=== PATIENT | male | born 1995 | race Caucasian/White ===

== ENCOUNTER 2016-08-17 18:10 | Emergency (ER) | payer MEDICAID, OTHER ==
[~2016-08-17] VITALS: Ht 182.9 cm; Wt 63.6 kg
[~2016-08-17 18:10] MED LIST: DICL75TA5 PO; NO ROUTINE MEDS
[2016-08-17 18:18] VITALS: Ht 182.9 cm; Wt 63.6 kg
[2016-08-17] MEDS ORDERED: HYDR-347 PO (19:54)
--- NOTE | 2016-08-17 19:55 | ERPDOC ---
Departure Disposition Decision Date: Aug 17, 2016 Disposition Decision Time: 19:52 Disposition: 01 DISCHARGED HOME, SELF-CARE Impression Impression Impression: Primary Impression: Clavicle fracture Encounter type: initial encounter Clavicle location: lateral end Fracture type: closed Fracture alignment: displaced Laterality: left Qualified Codes: S42.032A - Displaced fracture of lateral end of left clavicle, initial encounter for closed fracture Severity: Moderate Condition: Improved Seen By: Physician only Referrals: MONAE MILLER II, MD (Family) 1 Day [facility] 1 Day Patient Instructions: Clavicle Fracture (ED) Problems/Meds/Labs Reviewed?: Yes Medications reviewed and manag: Yes Follow up care ordered?: Yes Mental Status: Alert, Oriented Scripts Hydrocodone/Acetaminophen ([place] 7.5-325 Tablet) 7.5-325 Tablet 1 TAB PO Q4HR Y for PAIN for 3 Days, #18 TAB 0 Refills Prov: ANTHONY MCCONNELL DO 08/17/16 HPI - General Medical General Chief Complaint: Shoulder Injury Stated Complaint: POSS BROKEN COLLAR BONE Time Seen by Provider: 18:25 Source: patient Exam Limitations: no limitations HPI - General Medical Initial Comments 21-year-old male presents to the emergency department with a chief complaint of an injury to his left shoulder. Patient believes he may have fractured his clavicle. Patient noted onset of symptoms one hour prior to arrival to the emergency department. Pain is moderate. Pain is dull. There is no radiation of pain. Pain has been persistent in nature since onset. Patient was climbing into the back of a pickup truck when he slipped and fell forward into the bed landing on his left shoulder. He denies striking his head, loss of consciousness, or neck pain. No other complaints or associated symptoms. No other injuries per patient. Occurred At: home Onset: Constant Allergies: Coded Allergies: No Known Drug Allergies (Verified Allergy, Unknown, 08/17/16) Past History Pediatric PMH History: Full-Term Hospitalizations: None Past Medical History Pt denies signifigant PMH Psychological: depression, suicide attempt Surgical History General: appendix Family History Family History: Negative Vaccines Hx Influenza Vaccination: No Hx Pneumococcal Vaccination: No Hx Tetanus Diptheria: Yes (7 YRS AGO) Hx Tetanus, Diptheria, Pertuss: Yes Social History Smoking Status: Never smoker Substance Use Type: does not use Alcohol Intake: none Review of Systems Constitutional Constitutional: DENIES: chills, fever Eyes General: DENIES: erythema, exudate Lids/Accessories: DENIES: erythema, swelling Vision: DENIES: acuity, blurring ENMT Ears: DENIES: drainage, erythema Hearing: DENIES: hearing loss Balance: DENIES: ataxia, falling to one side Sinuses: DENIES: congestion, pain Nose: DENIES: nosebleeds, pain Mouth/Throat: DENIES: painful swallowing, sore throat Teeth: DENIES: pain Jaw: DENIES: pain Cardiovascular Cardiac: DENIES: chest pain, dyspnea on exertion Rhythm/Rate: DENIES: irregular beat, palpitations Vascular: DENIES: pedal edema, unilateral swelling Pulmonary Respiratory: DENIES: cough, dyspnea, pleuritic chest pain, sputum GI Upper Abdomen: DENIES: nausea, pain, vomiting Lower Abdomen: DENIES: diarrhea, pain General: DENIES: dysuria, frequency Musculoskeletal General: joint pain, pain Integumentary Skin: DENIES: itching, rash Neurological General: DENIES: headache, numbness, weakness Psychiatric Psychiatric: DENIES: emotional instability, suicidal ideation/attempt Endocrine Endocrine: DENIES: polydipsia, polyphagia Hematologic/Lymphatic Hematologic/Lymphatic: DENIES: frequent nosebleeds, lymphadenopathy Allergic/Immunological Allergic/Immunoligical: DENIES: allergic reactions, hives Physical Exam General General Nourishment: well nourished, well developed, appears stated age, no acute distress, adult General Body Habitus: well groomed Vitals and Pain First Documented Vital Signs Date Time Temp Pulse Resp B/P Pulse Ox O2 Delivery O2 Flow Rate FiO2 08/17/16 18:18 97.9 80 16 123/76 98 Room Air Weight: Kilograms: 63.600 Height (feet): 6 Height (inches): 0 Triage Pain Scale: RN VS reviewed by Provider: Yes Normal Exams: Head: Normocephalic w/o trauma Eyes: Pupils are PERRLA w/ EOMI, No scleral icterus, irritation, or foreign bodies noted ENMT: No facial trauma, nasal exudates, pharyngeal erythema, or exudates are noted Dental: No fractured, loose, or missing teeth noted Neck: Full range of motion, without adenopathy, JVD, bruits or thyromegaly Chest/Resp: Clear all ruiz, with good airflow, and symmetry bilaterally CV: Regular rate and rhythm, without murmur or gallop, Pulses 2+ all extremities, capillary refill, <2 seconds all ext., no pedal edema noted Abdomen: Bowel sounds positive, soft, non-tender, non-distended, no hepatosplenomegaly, masses or bruits noted Lymphatic: No lymphadenopathy, or lymphedema noted Musculoskeletal: No tenderness, or deformity noted, good range of motion, all extremities Integumentary: No rashes, hives, or bruising noted, hair and nails, without abnormality Neurologic: Patient is alert, and oriented, cranial nerves, motor/sensory/ cerebellar, exams w/o gross deficits, to observation Psychiatric: Patient exhibits, appropriate attention, emotion and affect Musculoskeletal (brief) Comments LUE - full range of motion. Skin is intact. No tenting of skin over the clavicle. Tender to palpation over the distal clavicle. Pulses are intact. Sensation intact. Capillary refill less than 2. No erythema. Slight soft tissue swelling noted. No focal bony tenderness. No other tenderness in the left upper extremity. All other extremities are unremarkable. Differential Diagnoses Considering: Other (sprain/strain/fracture/contusion) Progress Results/Orders Orders Procedure Category Date Status Time Ct Head W/O Contrast CT 08/17/16 Taken 18:39 Ct Cervical Spine W/O CT 08/17/16 Taken Contrast 18:39 Shoulder Left 2-3 RAD 08/17/16 Taken Views 18:39 Chest, Pa & Lateral RAD 08/17/16 Taken 18:39 Clavicle Left RAD 08/17/16 Taken 18:39 Sling DEEPA 08/17/16 In Process 19:50 Hydrocodone/Acetaminophen PHA 08/17/16 Complete ([place]ford 7.5/325 20:00 Medications Current ED Medications Acetaminophen/ Hydrocodone Bitart ([place] 7.5/325) 1 tab O ONCE PO Last administered on 08/17/16t 20:05; Start 08/17/16 at 20:00; Stop 08/17/16 at 20:01 ; Status DC Progress Progress Imaging is discussed in detail with the patient and family and questions are answered. Patient is given analgesic pain medication with improvement of symptoms in the emergency Department. Patient is discussed with orthopedics on- call and recommendations are followed. Patient is placed in a sling with good alignment by the RN. Patient is distal neurovascularly intact post-application of sling. Patient is discharged home in improved condition. Patient is to follow up with orthopedics tomorrow. Patient is to return to the emergency department if his condition worsens or changes in any manner. Patient is agreement with the current plan of management. Patient is to follow up as instructed. Prescription for [place]ford was provided. Xray Xray : Xray: Shoulder L Interpretation: Abnormal (minimally displaced distal clavicle fracture. Otherwise unremarkable. Chest x-ray: Negative. Left clavicle: Minimally displaced distal clavicle fracture.), Faxed Report ANTHONY MCCONNELL DO Aug 17, 2016 19:55
[2016-08-17 20:25] VITALS: BP 119/72; PULSE 71; RESP 16; TEMP 97.9; O2SAT 99
--- NOTE | 2016-08-18 08:43 | DI ---
INDICATION: ITS.REASON: pain PROCEDURE: CHEST 2-VIEWS UPRIGHT (PA \T\ LAT) Encounter: Initial COMPARISON: September 27, 2008 FINDINGS: The lungs are clear without evidence of focal abnormal airspace opacity. There is no pleural effusion or pneumothorax. The heart size, mediastinal contours and pulmonary vascularity are within normal limits. There is no significant skeletal abnormality. IMPRESSION: No acute cardiopulmonary disease. There is a preliminary report by [facility]. .
--- NOTE | 2016-08-18 08:43 | DI ---
Indication: ITS.REASON: Fall with left shoulder pain PROCEDURE: CLAVICLE LEFT: Encounter: Initial Comparison: None Findings: Minimally displaced fracture of the distal tip of the clavicle. No additional acute fracture or dislocation seen. Acromioclavicular joint width is normal. Impression: Closed posttraumatic distal clavicular fracture. There is a preliminary report by [facility] [employer]. .
--- NOTE | 2016-08-18 08:44 | DI ---
Indication: ITS.REASON: Fall with left shoulder pain PROCEDURE: SHOULDER LEFT 3 VIEWS: Encounter: Initial Comparison: None Findings: Minimally displaced fracture of the tip of the distal clavicle. No additional acute fracture or dislocation seen. Impression: Closed posttraumatic distal clavicular fracture. There is a preliminary report by [facility]. .
--- NOTE | 2016-08-18 08:45 | DI ---
Indication: ITS.REASON: Fall with neck pain PROCEDURE: CT CERVICAL SPINE W/O CONTRAST: Encounter: Initial Comparison: None Technique: Axial CT images through the cervical spine were performed without contrast. Coronal and sagittal reformatted images were also obtained. Automated Exposure Control and Iterative Reconstruction dose reducing techniques were utilized. FINDINGS: The alignment of the cervical spine is normal. There is no evidence of acute fracture or subluxation of the cervical spine. The facet joints are well aligned with preservation of the intervertebral disk and facet joints. The atlantoaxial articulation, dens, and upper cervical spine demonstrate no subluxation. There is no evidence of significant spinal stenosis, foraminal compromise, or significant disk herniation. The paraspinal soft tissues and spinal canal appear unremarkable. IMPRESSION: No acute traumatic abnormality of the cervical spine. There is a preliminary report by [facility]. .
--- NOTE | 2016-08-18 08:45 | DI ---
Indication: ITS.REASON: Fall with head pain PROCEDURE: CT HEAD W/O CONTRAST: Encounter: Initial Comparison: None Technique: Axial CT images through the head were performed without contrast. Iterative Reconstruction dose reducing technique was utilized. FINDINGS: The ventricles are of normal size, shape, and configuration for the patient's age. There is no evidence of acute intracranial hemorrhage, midline displacement, or mass effect. The CT attenuation of the brain parenchyma is normal within the cerebellum, brain stem, and cerebral hemispheres. The tympanic cavities and mastoid air cells are free of appreciable disease. There are no definite fractures of the skull base, calvarium, or visualized portion of the midface. IMPRESSION: No CT evidence of acute traumatic intracranial injury. There is a preliminary report by [employer]. .
== END 2016-08-17 20:25 | disposition home or self-care (01) ==
LOC: ED 18:10
DX: S42.032A Displaced fracture of lateral end of left clavicle, initial encounter for closed fracture (principal); W01.0XXA Fall on same level from slipping, tripping and stumbling without subsequent striking against object, initial encounter; Y93.89 Activity, other specified; Y92.008 Other place in unspecified non-institutional (private) residence as the place of occurrence of the external cause; Y99.8 Other external cause status

== ENCOUNTER 2017-02-08 10:44 | Observation (INO) ==
[2017-02-08] MEDS ORDERED: CHARCOAL Activated 25gm/120ml SUSP PO ONE (10:50)
--- NOTE | 2017-02-08 10:51 | Emergency Department Report ---
Overdose HPI - General Stated Complaint: overdoes Time Seen by Provider: 02/08/17 10:51 Source: patient Mode of arrival: ambulatory Limitations: no limitations - History of Present Illness HPI Narrative: Patient is a 21-year-old male brought to the emergency department by for intentional overdose. Patient at home with his girlfriend, took 20 0.5 mg Klonopin belonging to a 3rd green party that were "left there". Girlfriend called 's department, patient was transported cooperatively to the ER for evaluation. On arrival patient able to answer questions but very sleepy. complaint: intentional overdose Onset (ago): hour(s) (1) Timing confirmed by: other (significant other) Intent: suicide attempt (patient states he was trying to harm himself) How Overdose Was Discovered: family/friend present at time Context: Intentional Overdose: relationship problems Associated symptoms: depression - Related Data Home Medications Medication Instructions Recorded Confirmed No known Home medications [No home 12/08/16 02/08/17 meds] clonazePAM [Klonopin] 0.5 tab PO O 02/08/17 02/08/17 Allergies Allergy/AdvReac Type Severity Reaction Status Date / Time No Known Drug Allergies Allergy Unknown Verified 02/08/17 11:02 Review of Systems Constitutional: Denies: fever, chills Eyes: Denies: eye discharge, vision change ENT: Denies: throat pain, dental pain Cardiovascular: Denies: chest pain, palpitations Gastrointestinal: Denies: abdominal pain, nausea, vomiting Genitourinary: Denies: urgency, dysuria, frequency Integumentary: Denies: alopecia, change in hair Neurological: Denies: headache, weakness, numbness, paresthesias Psychiatric: Reports: depression, suicidal thoughts. Denies: anxiety Endocrine: Denies: fatigue, heat or cold intolerance Hematological/Lymphatic: Denies: easy bleeding, easy bruising Allergic/Immunologic: Denies: facial swelling, urticaria PFSH Patient Stated Medical History Substance Use Disorder denies Medical History Updates: Depression Surgical History: Appendectomy - Social History Smoking status: Current every day smoker Substance use type: does not use Alcohol intake frequency: does not drink Physical Exam - Limitations Limitations: no limitations - General General appearance: lethargic - Eye Eye exam: Present: PERRL, EOMI - ENT ENT exam: Present: normal oropharynx - Chest Chest inspection: Present: symmetric chest wall rise. Absent: tenderness - Respiratory Respiratory exam: Present: normal lung sounds bilaterally. Absent: respiratory distress, wheezes, stridor - Cardiovascular Cardiovascular exam: Present: regular rate, normal rhythm, normal heart sounds - Abdominal Exam Abdominal exam: Present: soft. Absent: distention, tenderness - Extremities Exam Extremities exam: Present: full ROM. Absent: tenderness - Skin Skin exam: Present: warm, dry - Neurological Exam Neurological exam: Present: alert, oriented X3, CN II-XII intact - Psychiatric Psychiatric exam: Present: normal affect, normal mood Course Vital Signs Temperature 97.7 F 02/08/17 10:45 Pulse Rate 86 02/08/17 10:45 Respiratory Rate 16 02/08/17 10:45 Blood Pressure 125/76 02/08/17 10:45 Pulse Oximetry 100 02/08/17 10:45 Temperature 97.7 F 02/08/17 10:45 Pulse Rate 88 02/08/17 11:41 Respiratory Rate 16 02/08/17 10:45 Blood Pressure 125/76 02/08/17 10:45 Pulse Oximetry 100 02/08/17 10:45 Overdose - MDM Narrative Medical decision making narrative: Patient stated several times that he was attempting to harm himself. Patient towards the end of his visit in the emergency department became combative and argumentative pulling at lines threatening to leave threatening to spit. Patient was placed in hard restraints 12:18. Patient continued to attempt to get out of his restraints pulled lines, patient was given 5 mg of Haldol IV 1 - Differential Diagnosis Likely: drug overdose (clonazepam, intentional) - Medical Records Attestation: I reviewed the patient's medical records. - Lab Data Attestation: I reviewed the patient's lab results. Result diagrams: 02/08/17 10:59 02/08/17 10:59 Lab Results 02/08/17 02/08/17 02/08/17 Range/Units 10:59 10:59 12:03 WBC 6.9 (4.5-11.0) T/MM3 RBC 5.20 (4.50-5.90) M/MM3 Hgb 16.0 (13.5-17.5) GM/DL Hct 46.0 (41-53) % MCV 88.5 (80-100) UM3 MCH 30.8 (26-34) UUG MCHC 34.8 (31-37) GM/DL RDW Std Deviation 40.0 (36.9-50.2) FL Plt Count 170 (130-400) T/MM3 MPV 9.5 (9.4-12.4) UM3 Immature Gran % (Auto) 0.1 (0.0-0.5) % Neut % (Auto) 67.8 H (33-66) % Lymph % (Auto) 24.6 (23-45) % [place] % (Auto) 6.1 (0-9.0) % Eos % (Auto) 1.0 (0-4) % Baso % (Auto) 0.4 (0-2) % Neut # (Auto) 4.7 (1.8-7.7) T/MM3 Lymph # (Auto) 1.7 (1-4.8) T/MM3 B[place] # (Auto) 0.4 (0-0.8) T/MM3 Eos # (Auto) 0.1 (0-0.5) T/MM3 Baso # (Auto) 0.0 (0-0.2) T/MM3 Abs Immat Gran (auto) 0.01 (0.00-0.03) T/MM3 Turbidity < 20 (0-20) Sodium 146 H (134-144) MEQ/L Potassium 4.2 (3.6-5) MEQ/L Chloride 105 (98-107) MEQ/L Carbon Dioxide 30 (22-30) MEQ/L Anion Gap 11 (5-15) MEQ/L BUN 9.0 (9-20) MG/DL Creatinine 1.0 (0.8-1.5) MG/DL GFR Calculation 95 BUN/Creatinine Ratio 9 (6-26) RATIO Glucose 71 L (75-110) MG/DL Calculated Osmolality 278 (261-280) MOSM/KG Calcium 10.1 (8.4-10.2) MG/DL Total Bilirubin 1.50 H (0.20-1.30) MG/DL Icterus Index < 2 (0-7) AST 26 (17-59) U/L ALT 38 (21-72) U/L Alkaline Phosphatase 65 (38-126) U/L Total Protein 8.0 (6.3-8.2) G/DL Albumin 4.9 (3.5-5.0) G/DL Globulin 3.1 (2.4-3.6) G/DL Albumin/Globulin Ratio 1.6 (1.1-2.2) RATIO TSH 0.75 (0.47-4.68) MIU/L Specimen Hemolysis < 15 (0-25) Ur Collection Type Urine, clean catch Urine Color Yellow (YELLOW) Urine Clarity Clear Urine pH 6.0 (5.0-8.0) Ur Specific [place] 1.020 (1.015-1.025) Urine Protein Negative (NEGATIVE) Urine Glucose (UA) Negative (NEGATIVE) Urine Ketones Negative (NEGATIVE) Urine Occult Blood Negative (NEGATIVE) Urine Nitrate Negative (NEGATIVE) Urine Bilirubin Negative (NEGATIVE) Urine Urobilinogen 0.2 (NORMAL) EU/DL Ur Leukocyte Esterase Negative (NEGATIVE) Urinalysis Comment Microscopic not ind. Salicylates < 1.0 L (2-20) MG/DL Urine Opiates Screen ng/mL Ur Oxycodone Screen ng/mL Urine Methadone Screen ng/mL Ur Propoxyphene Screen ng/mL Acetaminophen < 10 L (10-30) UG/ML Ur Barbiturates Screen ng/mL U Tricyclic Antidepress ng/mL Ur Phencyclidine Scrn ng/mL Ur Amphetamines Screen ng/mL U Methamphetamines Scrn ng/mL U Benzodiazepines Scrn ng/mL Urine Cocaine Screen ng/mL U Cannabinoids Screen ng/mL Ur Drug Screen Confirm Alcohol, Quantitative <10 (<10) MG/DL 02/08/17 02/08/17 Range/Units 12:03 12:03 WBC (4.5-11.0) T/MM3 RBC (4.50-5.90) M/MM3 Hgb (13.5-17.5) GM/DL Hct (41-53) % MCV (80-100) UM3 MCH (26-34) UUG MCHC (31-37) GM/DL RDW Std Deviation (36.9-50.2) FL Plt Count (130-400) T/MM3 MPV (9.4-12.4) UM3 Immature Gran % (Auto) (0.0-0.5) % Neut % (Auto) (33-66) % Lymph % (Auto) (23-45) % B[place] % (Auto) (0-9.0) % Eos % (Auto) (0-4) % Baso % (Auto) (0-2) % Neut # (Auto) (1.8-7.7) T/MM3 Lymph # (Auto) (1-4.8) T/MM3 [place] # (Auto) (0-0.8) T/MM3 Eos # (Auto) (0-0.5) T/MM3 Baso # (Auto) (0-0.2) T/MM3 Abs Immat Gran (auto) (0.00-0.03) T/MM3 Turbidity (0-20) Sodium (134-144) MEQ/L Potassium (3.6-5) MEQ/L Chloride (98-107) MEQ/L Carbon Dioxide (22-30) MEQ/L Anion Gap (5-15) MEQ/L BUN (9-20) MG/DL Creatinine (0.8-1.5) MG/DL GFR Calculation BUN/Creatinine Ratio (6-26) RATIO Glucose (75-110) MG/DL Calculated Osmolality (261-280) MOSM/KG Calcium (8.4-10.2) MG/DL Total Bilirubin (0.20-1.30) MG/DL Icterus Index (0-7) AST (17-59) U/L ALT (21-72) U/L Alkaline Phosphatase (38-126) U/L Total Protein (6.3-8.2) G/DL Albumin (3.5-5.0) G/DL Globulin (2.4-3.6) G/DL Albumin/Globulin Ratio (1.1-2.2) RATIO TSH (0.47-4.68) MIU/L Specimen Hemolysis (0-25) Ur Collection Type Urine Color (YELLOW) Urine Clarity Urine pH (5.0-8.0) Ur Specific [place] (1.015-1.025) Urine Protein (NEGATIVE) Urine Glucose (UA) (NEGATIVE) Urine Ketones (NEGATIVE) Urine Occult Blood (NEGATIVE) Urine Nitrate (NEGATIVE) Urine Bilirubin (NEGATIVE) Urine Urobilinogen (NORMAL) EU/DL Ur Leukocyte Esterase (NEGATIVE) Urinalysis Comment Salicylates (2-20) MG/DL Urine Opiates Screen Negative ng/mL Ur Oxycodone Screen Negative ng/mL Urine Methadone Screen Negative ng/mL Ur Propoxyphene Screen Negative ng/mL Acetaminophen (10-30) UG/ML Ur Barbiturates Screen Negative ng/mL U Tricyclic Antidepress Negative ng/mL Ur Phencyclidine Scrn Negative ng/mL Ur Amphetamines Screen Negative ng/mL U Methamphetamines Scrn Negative ng/mL U Benzodiazepines Scrn Negative ng/mL Urine Cocaine Screen Negative ng/mL U Cannabinoids Screen Positive ng/mL Ur Drug Screen Confirm Sent out Alcohol, Quantitative (<10) MG/DL Disposition Clinical Impression: Drug overdose Qualifiers: Encounter type: initial encounter Injury intent: intentional self-harm Qualified Code(s): T50.902A - Poisoning by unspecified drugs, medicaments and biological substances, intentional self-harm, initial encounter Disposition: 02 To OBS [facility] [place] Condition: Stable Prescriptions: No Action No known Home medications [No home meds] 0 #0 misc clonazePAM [Klonopin] 0.5 tab PO O Referrals: Azar Dodd II, MD [Family Provider] - Time of Disposition: 12:59 - Seen By: physician
[2017-02-08] MEDS ORDERED: NS 1,000 ML IV ONE (10:54)
[2017-02-08] MEDS: SALINE FLUSH 10ml SYRINGE IVF PRN ×2 (11:05→15:20)
[2017-02-08] MEDS ORDERED: HALOPERIDOL 5 MG/ML INJECTION IVP ONE (12:47)
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
[2017-02-08 14:10] VITALS: BMI 20.2
[2017-02-08] MEDS: 1/2 NS 1,000 ML IV SCH (15:19)
[2017-02-08] MEDS ORDERED: HALOPERIDOL 5 MG/ML INJECTION IVP PRN (16:21)
[2017-02-09] MEDS: 1/2 NS 1,000 ML IV SCH ×2 (01:21→11:33)
[2017-02-09] MEDS: SALINE FLUSH 10ml SYRINGE IVF PRN (01:22)
[2017-02-09] MEDS: NICOTINE 21 MG PATCH TD PRN ×2 (09:11→19:06)
[2017-02-09] MEDS ORDERED: ACETAMINOPHEN 325 MG TABLET PO PRN (12:40)
[2017-02-09] MEDS ORDERED: APAP/DIPHENHYDRAMINE 500 MG/25 MG TABLET PO PRN (14:08)
--- NOTE | 2017-02-09 14:44 | Progress Note ---
Subjective: Saravanan was seen with his fiance at bedside in addition to friends/family members. He reports they didn't rest well overnight and complains of generalized myalgias. His appetite is poor but he denied dyspnea or nausea. Said a headache today and his fiance reports intermittent generalized headaches for some time. He had a negative CT of the head in December during ER evaluation. She reports that he had some brief double vision this morning but he minimizes it and reports that it's gone. Saravanan complains of difficulty moving the long and index fingers of his right hand after punching the wall in the ER yesterday and 4 days earlier. Swelling is slightly worse today than it was yesterday but improved from 4 days ago. He denies difficulty voiding or dizziness. Objective Vital signs: Temperature 97.6 F 02/09/17 08:00 Pulse Rate 80 02/09/17 12:00 Respiratory Rate 17 02/09/17 10:00 Blood Pressure 111/62 02/09/17 10:00 Pulse Oximetry 96 02/09/17 10:00 EXAM General-NAD, alert, more interactive than yesterday HEENT-conjunctiva clear, oropharynx clear, neck supple Lungs-respirations nonlabored, good airflow, breath sounds clear Cardiac-regular rhythm, S1-S2 Abd-soft, bowel sounds present Ext-without edema bilateral lower extremities Musculoskeletal-soft tissue swelling across right MCPs especially at the base of the index and long digits; minor abrasions present. Incomplete flexion at the MCPs/PIPs and incomplete extension at the same joints. MCPs very tender to palpation. Neuro-MAEW Psych-flat affect - Height/Weight/BMI: Height 1.75 m Weight 62.4 kg Body Mass Index 20.2 Results - Labs CBC & Chem 7: 02/08/17 10:59 02/09/17 04:33 Labs: Bilirubin 1.7-all unconjugated Repeat UDS positive for cannabinoids, negative for benzos - Imaging and Cardiology right hand Status: image reviewed by me (x-rays of right hand obtained on 02/05 reviewed by myself demonstrating no fracture or soft tissue swelling. Repeat films pending) Assessment and Plan (1) Intentional clonazepam overdose Current visit: Yes Status: Acute (2) Depression Current visit: Yes Status: Acute (3) Anxiety Current visit: Yes Status: Acute DVT Prophylaxis: SCD's Resuscitation Status: Full Code Assessment and Plan: Impression Intentional clonazepam overdose Suicide attempt Hypernatremia, POA-resolved Right hand contusion Anxiety Depression Headaches, intermittent Unconjugated hyperbilirubinemia Plan Saravanan is calm today and agreeable to inpatient psychiatric care. [facility] evaluation completed and referred for inpatient care at [facility]. Patient remains obscure about circumstances yesterday in conversation with me. UDS remains negative for benzos. No known emesis prior to arrival; treated with activated charcoal in the ER. Per per review and review current event was patient's seventh suicide attempt. Headache improved with Tylenol, no high risk features. Decreased hand movement with hand contusion. Initiate ice packs. Repeat hand films. Will add nonsteroidal; consider orthopedic consultation. Hemodynamically stable, metabolically stable. At high risk for self-harm. Discussed with case management and nursing. Giovanni provide supplemental history. Hospital Course Summary Disclaimer: The visit summary below is not to be considered part of the above Progress Note. Hospital Course: 02/08/17 - Admission Impression Intentional clonazepam overdose Suicide attempt Hypernatremia Right hand contusion Anxiety depression Plan Admit patient to ICU as a outpatient under the care of Dr. Ortega for intentional overdose, suicide attempt. Patient did receive IV Haldol in the emergency room. Given his aggressive behaviors he is currently in restraints for both safety of himself as well as nursing staff. Would recommend avoiding further benzodiazepines for behaviors. Given patient's overdose on clonazepam this morning. Monitor patient on cardiac telemetry Currently requiring oxygen by nasal cannula to maintain adequate saturations. He did receive 1 liter of normal saline in the ER. Will change to 1/2 NS at 100ML/hr for ongoing hydration and hypernatremia. Once patient is more alert he will need a Psychiatric evaluation given suicidal attempt. It is reported that patient has been under the care of a psychologist since the age of 8. His father is secondary to suicide. Spoke with , as patient has Medicaid insurance. He will need to be screened by [facility] once medically stable. SCDs to bilateral lower extremity for DVT prophylaxis. Will recheck chemistry panel tomorrow to follow electrolytes Plan or care and orders discussed with attending, Dr Ortega 02/09/17 Saravanan is calm today and agreeable to inpatient psychiatric care. [facility] evaluation completed and referred for inpatient care at [facility]. Patient remains obscure about circumstances yesterday in conversation with me. UDS remains negative for benzos. No known emesis prior to arrival; treated with activated charcoal in the ER. Per per review and review current event was patient's seventh suicide attempt. Headache improved with Tylenol, no high risk features. Decreased hand movement with hand contusion. Initiate ice packs. Repeat hand films. Will add nonsteroidal; consider orthopedic consultation. Hemodynamically stable, metabolically stable. At high risk for self-harm. Discussed with case management and nursing. Giovanni provide supplemental history.
[2017-02-09 14:54] VITALS: O2SAT 99
--- NOTE | 2017-02-09 15:04 | XRay Report ---
Indication: injury-punched wall x2, can't bend long/index PROCEDURE: XR hand RT min 3V: Encounter: Initial Comparison: Right hand radiographs dated February 05, 2017 Findings: There is no acute fracture, dislocation or malalignment identified. Impression: No acute osseous abnormality. .
--- NOTE | 2017-02-09 15:46 | Orthopedic Consult Note ---
Orthopedic Consultation HPI - Consultation Info Consult Date: 02/09/17 Attending Physician: Marge Ortega MD Consult Reason: joint pain - History of Present Illness Patient states he punched a wall several times in the last couple of days. He denies any previous injury to the right hand although he does state he has had many things in the past with this hand. Currently complains of right hand pain only. Review of Systems - Constitutional Constitutional: Absent: chills, fever(s), night sweats - Cardiovascular Cardiovascular: Absent: chest pain, palpitations - Respiratory Respiratory: Absent: cough, dyspnea - Gastrointestinal Gastrointestinal: Absent: abdominal pain, nausea, vomiting - Musculoskeletal Musculoskeletal: Present: as per HPI - Integumentary/Breasts Integumentary: Absent: lesions, rash - Neurological Neurological: Absent: numbness, tingling PFSH Patient Stated Medical History Asthma Yes: sports related as a child Substance Use Disorder Yes: "denies" Medical History Updates: Depression. Anxiety Surgical History: Appendectomy-2009 (Dr. Senior) - Social History Smoking status: Current every day smoker Current residence: Apartment/Private Home Medications Home Medications Medication Instructions Recorded Confirmed Type No known Home medications [No home 12/08/16 02/08/17 History meds] Allergies Allergy/AdvReac Type Severity Reaction Status Date / Time No Known Drug Allergies Allergy Unknown Verified 02/08/17 11:02 Orthopedic Exam Vital signs: Temperature 98.3 F 02/09/17 12:00 Pulse Rate 93 02/09/17 14:00 Respiratory Rate 22 02/09/17 14:00 Blood Pressure 115/80 02/09/17 12:00 Pulse Oximetry 99 02/09/17 14:00 - Constitutional General Appearance: Present: no acute distress, well developed, well nourished - Respiratory Exam Present: non-labored - Cardiovascular Exam Capillary Refill: < 2-3 Seconds - Extremities Exam Comments: Good radial pulse - Integumentary Exam Present: pink, warm, dry - Neurological Exam Present: intact to light touch, no deficits - Psychiatric Exam Present: alert, normal affect - Additional findings Additional findings: Swelling over the third and fourth metacarpal heads. Tender with palpation over the third and fourth metacarpal heads. He can almost make a full fist and lacks just a few degrees of full extension of all digits. No snuffbox tenderness. No pain with first CMC grind. No rotational deformities with range of motion of digits. No pain with palpation or range of motion of wrist. - Labs Result Diagrams: 02/08/17 10:59 02/09/17 04:33 Abnormal lab results 02/09/17 Range/Units 04:33 BUN 6.0 L (9-20) MG/DL Total Bilirubin 1.70 H (0.20-1.30) MG/DL Impression and Recommendation (1) Hand contusion Current visit: Yes Qualifiers: Encounter type: initial encounter Laterality: right Qualified Code(s): S60.221A - Contusion of right hand, initial encounter Status: Acute I reviewed his x-ray findings as well as his exam. I think there is a very slim chance there is an occult fracture but more likely this is a contusion. I recommended ice elevation and anti-inflammatory medications and work on active range of motion exercises daily. I also recommended he stop hitting things. Follow up with his PCP if he continues to have symptoms. Hospital Course Summary Disclaimer: The visit summary below is not to be considered part of the above Progress Note. Hospital Course: 02/08/17 - Admission Impression Intentional clonazepam overdose Suicide attempt Hypernatremia Right hand contusion Anxiety depression Plan Admit patient to ICU as a outpatient under the care of Dr. Ortega for intentional overdose, suicide attempt. Patient did receive IV Haldol in the emergency room. Given his aggressive behaviors he is currently in restraints for both safety of himself as well as nursing staff. Would recommend avoiding further benzodiazepines for behaviors. Given patient's overdose on clonazepam this morning. Monitor patient on cardiac telemetry Currently requiring oxygen by nasal cannula to maintain adequate saturations. He did receive 1 liter of normal saline in the ER. Will change to 1/2 NS at 100ML/hr for ongoing hydration and hypernatremia. Once patient is more alert he will need a Psychiatric evaluation given suicidal attempt. It is reported that patient has been under the care of a psychologist since the age of 8. His father is secondary to suicide. Spoke with , as patient has Medicaid insurance. He will need to be screened by [facility] once medically stable. SCDs to bilateral lower extremity for DVT prophylaxis. Will recheck chemistry panel tomorrow to follow electrolytes Plan or care and orders discussed with attending, Dr Ortega 02/09/17 Saravanan is calm today and agreeable to inpatient psychiatric care. [facility] evaluation completed and referred for inpatient care at [facility]. Patient remains obscure about circumstances yesterday in conversation with me. UDS remains negative for benzos. No known emesis prior to arrival; treated with activated charcoal in the ER. Per per review and review current event was patient's seventh suicide attempt. Headache improved with Tylenol, no high risk features. Decreased hand movement with hand contusion. Initiate ice packs. Repeat hand films. Will add nonsteroidal; consider orthopedic consultation. Hemodynamically stable, metabolically stable. At high risk for self-harm. Discussed with case management and nursing. Fizuleika provide supplemental history.
[2017-02-09] MEDS ORDERED: IBUPROFEN 600 MG TABLET PO PRN (16:18)
--- NOTE | 2017-02-09 16:23 | Discharge Instructions ---
Discharge Plan - Med Rec/Dispo Referrals/Follow Up: Azar Dodd II, MD [Family Provider] - (On discharge from inpatient psychiatry) Prescriptions: New Acetaminophen [Tylenol] 650 mg PO Q5H PRN tablet PRN Reason: Discomfort Ibuprofen [Motrin] 600 mg PO TID PRN tablet PRN Reason: Pain Nicotine Patch [Nicoderm] 21 mg TD DAILY PRN patch PRN Reason: Cessation/Smoking/Tobacco Use APAP/Diphenhydramine 500/25 [Tylenol Pm] 2 tab PO HS PRN tablet PRN Reason: Sleep Nicotine Patch Removal 1 removal TD DAILY patch Discharge Instructions/Outpatient Orders: Provider Discharge Instructions Location: Determined By Patient - Disposition 65 To Psych Hosp/Unit
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
[2017-02-09 18:32] VITALS: BP 138/86; PULSE 102; RESP 59; TEMP 97.8
[2017-02-10] MEDS ORDERED: NICOTINE PATCH REMOVAL TD SCH (09:00)
== END 2017-02-09 20:00 ==
LOC: CCU 10:44 → ED 10:44 → CCU 13:40
PROVIDERS: ADMIT Internal Medicine; ATTEND Internal Medicine